=== PATIENT | female | born 1965 | race Caucasian/White ===

== ENCOUNTER 2022-05-04 09:53 | Outpatient (CLI) | payer BC, SELFPAY ==
[2022-05-04 21:52] LABS: Albumin* 4.9 g/dL (3.3-5.0); Chloride* 100 mmol/L (96-114); Potassium* 4.9 mmol/L (3.6-5.1); Sodium* 138 mmol/L (135-149)
[2022-05-04 21:54] LABS: Cholesterol* 203 mg/dL (90-199); Creatinine* 0.6 mg/dL (0.5-1.5)
[2022-05-04 21:55] LABS: Alanine Aminotransferase* 13 U/L (4-35); Alkaline Phosphatase* 92 U/L (40-150); Aspartate Amino Transferase* 22 U/L (12-35); Bilirubin Total* 0.5 mg/dL (0.1-1.5); Blood Urea Nitrogen* 10 mg/dL (7-30); Calcium* 9.8 mg/dL (8.4-10.6); Carbon Dioxide* 29 mmol/L (20-32); Estimated Glomerular Filt Rate 106 ml/min; Glucose* 107 mg/dL (60-115); HDL Cholesterol* 84 mg/dL (>=50); LDL Cholesterol Calculated 94 mg/dL (<100); Total Protein* 7.7 g/dL (6.0-8.3); Triglycerides* 124 mg/dL (40-149)
[2022-05-04 22:15] LABS: Microalbumin Urine < 1 mg/dL
[2022-05-04 22:20] LABS: Creatinine Urine 10.4 mg/dL; Microalbumin Creatinine Ratio 90 mg/g (0-30)
== END 2022-05-04 09:54 | disposition home or self-care (01) ==
PROVIDERS: PCP Family Medicine; Visit Provider Family Medicine
DX: Z01.419 Encounter for gynecological examination (general) (routine) without abnormal findings (principal); I10 Essential (primary) hypertension; L65.9 Nonscarring hair loss, unspecified; Z79.890 Hormone replacement therapy; Z13.1 Encounter for screening for diabetes mellitus
CPT/HCPCS: 80053; 80061; 82043; 82570; 84443

== ENCOUNTER 2023-05-24 09:13 | Outpatient (CLI) | payer BC, SELFPAY ==
--- OUTSIDE RECORDS SUMMARY | 2023-05-24 09:16 | XMS_ITS | Continuity of Care Document ---
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, [address] [place] [address] [place], [id number], [place] tel:[phone] [facility] No Information Will Tim. [address] [place], [place], [id number], [place]. tel:[phone] Family History Family Member Type Diagnosis Age At Onset No Information Payers Payer name Insurance type Covered alliance party ID Authoriza tion(s) No Information Social History Type Description Quantity Date Captured Comments Sex Female Smoking Status No Information Chief Complaint And Reason For Visit No Information Reason For Referral Reason For Referral No Information History Of Present Illness Encounter Date Complaint History Of Prese nt Illness No Information Functional Status Date Functional Assessmen t No Information Instructions Date Instruction Additional Infor mation No Information Assessments Type Assessment Date No Information Patient Care Teams Name Effective Dates (start - stop) Status Members No Information
--- OUTSIDE RECORDS SUMMARY | 2023-05-24 09:16 | XMS_ITS ---
Author Name Robby Calixto Address [address] [place] [address] Organization [facility] Address [address] [place] [address] Care Team Providers Care Director Of Accounting Name Role Phone Robby Calixto Unavailable [phone] PROBLEMS Unknown Problems ALLERGIES No Known Allergies ENCOUNTERS Encounter Location Date Diagnosis [facility] [place] [address] [place] [address] Nov, Encounter for screening for COVID-19 Z11.52 [facility] [address] [place] [address] Sep, Encounter for screening for COVID-19 Z11.52 IMMUNIZATIONS No Known Immunizations SOCIAL HISTORY Never Assessed REASON FOR REFERRAL FUNCTIONAL STATUS PLAN OF CARE VITAL SIGNS MEDICATIONS No Known Medications PROCEDURES Procedure Date Ordered Result Body Site DTE [employer] November 25, 2021 Infectious agent detection b y nucleic acid (DNA or RNA); severe acute respiratory syndrome coronavirus 2 (SARS-CoV-2) (Coronavirus disease [COVID-19]), amplified probe technique November 25, 2021 Infectious agent detection b y nucleic acid (DNA or RNA); severe acute respiratory syndrome coronavirus 2 (SARS-CoV-2) (Coronavirus disease [COVID-19]), amplified probe technique Sep 30, 2020 Infectious agent detection b y nucleic acid (DNA or RNA); severe acute respiratory syndrome coronavirus 2 (SARS-CoV-2) (Coronavirus disease [COVID-19]), amplified probe technique Sep 30, 2020 RESULTS Name Result Date Reference Range COVID-19 Molecular Nucleic A vinny Amplification Test (NAAT) 2021-11-25 COVID-19 negative COVID-19 Molecular Nucleic A vinny Amplification Test (NAAT) 2020-09-30 COVID-19 NEGATIVE REASON FOR VISIT [employer] D[employer], No sxs, no exposure, [employer] DTE, [employer] D[employer] Insurance Providers Health Insurance Type Health Plan Insurance Address Health Plan Insurance Phone Health Plan Insurance Name Health Plan Coverage Dates Member ID Patient Relationship to Subscriber Patient Address Patient Phone Patient Name Patient Date of Subscriber ID Subscriber Name Subscriber Date of Group No [employer] [address] [place] [id number] [employer] self Diamond NOLASCO [id number]
== END 2023-05-24 09:14 | disposition home or self-care (01) ==
PROVIDERS: PCP Family Medicine; Visit Provider Family Medicine
DX: Z00.00 Encounter for general adult medical examination without abnormal findings (principal); I10 Essential (primary) hypertension; N89.8 Other specified noninflammatory disorders of vagina; Z13.6 Encounter for screening for cardiovascular disorders
CPT/HCPCS: 80053; 80061; 82043; 82570